=== PATIENT | male | born 1970 | race Two or more races ===

== ENCOUNTER 2025-04-22 15:24 | Inpatient (IN) | payer OTHER ==
[~2025-04-22] VITALS: Ht 152.4 cm; Wt 82.6 kg
[2025-04-22] MEDS: IV LR 1000 ML 1,000 ML BAG IV ONE (15:40)
[2025-04-22] MEDS: IV NS 0.9% 1,000 ML BAG IV ONE (15:40)
[2025-04-22 15:48] LABS: FRACTIONATED INSPIRED OXYGEN-V 21.0 %; SITE, VBG VBG - N/A; VBG BASE EXCESS -4.3 mmol/L (-2.0-3.0); VBG HCO3 22.6 mmol/L (22.0-29.0); VBG MetHb 0.2 % (0.5-1.5); VBG OXYGEN SATURATION 63.3 % (60.0-85.0); VBG PCO2 47.6 mmHg (38.0-54.0); VBG PH 7.294 (7.320-7.430); VBG PO2 35.7 mmHg (23.0-48.0); VBG TOTAL HEMOGLOBIN 17.9 G/dL (13.5-17.5)
[2025-04-22 15:55] LABS: PLATELET COUNT (AUTO) 222 K/uL (150-450); RED BLOOD CELL COUNT(AUTO) 5.22 MIL/uL (4.5-6.0); RED CELL DISTRIBUTION WIDTH 14.7 % (11.5-15.0); WHITE BLOOD COUNT (AUTO) 13.3 K/uL (4.3-11.0)
[2025-04-22 16:10] LABS: ASPARTATE AMINOTRANSFERASE 19.0 U/L (15-37); CALCIUM, SERUM 9.0 mg/dL (8.5-10.1); CREATININE 4.1 mg/dL (0.6-1.3); SODIUM SERUM 128.0 mmol/L (136-145); TOTAL PROTEIN, SERUM 7.9 g/dL (6.4-8.2); UREA NITROGEN, BLOOD 49.0 mg/dL (7-18)
[2025-04-22] MEDS ORDERED: INSULIN REGULAR, HUMAN 100 UNIT/ML 10 ML VIAL ONE ×2 (17:00→23:20)
[2025-04-22] MEDS: INSULIN REGULAR, HUMAN 100 UNIT/ML 10 ML VIAL SQ ONE (17:13)
[2025-04-22 17:16] LABS: APPEARANCE,URINE CLEAR (CLEAR); BLOOD, URINE 2+ Ery/uL (NEGATIVE); LEUKOCYTE ESTERASE ,URINE NEGATIVE (NEGATIVE); NITRITE, URINE NEGATIVE (NEGATIVE); UGLUCOSE 3+ mg/dL (NEGATIVE)
[2025-04-22] MEDS ORDERED: MAGNESIUM HYDROXIDE 30 ML UDC PO PRN (17:30)
[2025-04-22] MEDS ORDERED: ONDANSETRON HCL/PF 4 MG/2 ML VIAL IVP PRN (17:30)
[2025-04-22] MEDS ORDERED: INSULIN REGULAR, HUMAN 100 UNIT/ML 3 ML VIAL SQ PRN (17:30)
[2025-04-22] MEDS ORDERED: MAG HYDROX/AL HYDROX/SIMETH 30 ML UDC PO PRN (17:30)
[2025-04-22] MEDS ORDERED: ACETAMINOPHEN 325 MG TABLET PO PRN (17:30)
[2025-04-22] MEDS ORDERED: Z GUARD REMEDY 4 OZ OINT TP PRN (17:30)
[2025-04-22] MEDS ORDERED: DEXTROSE 50%-WATER 50 ML DISP.SYRIN IV PRN (17:30)
[2025-04-22 17:44] LABS: ADD URINE CULTURE NO
[2025-04-22] MEDS ORDERED: MELA10CA PO (17:44)
[2025-04-22] MEDS ORDERED: LOSA50TA39 PO (17:44)
[2025-04-22] MEDS ORDERED: ASPI-1420 PO (17:44)
[2025-04-22] MEDS ORDERED: NIFE30TA91 PO (17:44)
[2025-04-22] MEDS ORDERED: OMEG1CAP55 PO (17:44)
[2025-04-22] MEDS ORDERED: DIPH25TA62 PO (17:44)
[2025-04-22] MEDS ORDERED: CHOL500052 PO (17:44)
[2025-04-22] MEDS ORDERED: SIMV10TA98 PO (17:44)
[2025-04-22 17:45] LABS: SQUAMOUS EPITHELIAL CELL,UR 0-2 /HPF (None Seen)
[2025-04-22] MEDS: INSULIN REGULAR, HUMAN 100 UNIT in IV NS 0.9% 99 ML IV PRN ×2 (18:15→23:18)
[2025-04-22 20:00] VITALS: BP 119/93; TEMP 98.5; O2SAT 96
[2025-04-22] MEDS: IV NS 0.9% 1,000 ML IV PRN (20:04)
[2025-04-22 20:37] LABS: CALCIUM, SERUM 9.0 mg/dL (8.5-10.1); CREATININE 3.7 mg/dL (0.6-1.3); SODIUM SERUM 136.0 mmol/L (136-145); UREA NITROGEN, BLOOD 48.0 mg/dL (7-18)
[2025-04-22] MEDS ORDERED: BLOOD SUGAR DIAGNOSTIC 1 EACH STRIP IN SCH (21:00)
[2025-04-22] MEDS: BLOOD SUGAR DIAGNOSTIC 1 EACH STRIP IN SCH (21:17)
[2025-04-22 22:00] VITALS: BP 112/83; O2SAT 91
[2025-04-22] MEDS ORDERED: INSULIN GLARGINE, 100 UNIT/ML CARTRIDGE SQ SCH (22:00)
[2025-04-22] MEDS: HYDROCODONE/APAP 5/325MG TABLET PO PRN (22:58)
[2025-04-22 23:00] VITALS: BP 120/65; O2SAT 94
[2025-04-22 23:15] VITALS: O2SAT 96
[2025-04-23] VITALS (27 sets, daily range): BP systolic 95–130; BP diastolic 63–98; TEMP 98–98.6; O2SAT 88–96
[2025-04-23 00:09] LABS: CALCIUM, SERUM 9.8 mg/dL (8.5-10.1); CREATININE 3.3 mg/dL (0.6-1.3); SODIUM SERUM 146 mmol/L (136-145); UREA NITROGEN, BLOOD 49 mg/dL (7-18)
[2025-04-23] MEDS: IV D5W 1,000 ML IV PRN (03:25)
[2025-04-23 04:55] LABS: PLATELET COUNT (AUTO) 209 K/uL (150-450); RED BLOOD CELL COUNT(AUTO) 5.34 MIL/uL (4.5-6.0); RED CELL DISTRIBUTION WIDTH 14.1 % (11.5-15.0); WHITE BLOOD COUNT (AUTO) 14.2 K/uL (4.3-11.0)
[2025-04-23 05:09] LABS: CALCIUM, SERUM 9.8 mg/dL (8.5-10.1); CREATININE 3.3 mg/dL (0.6-1.3); PHOSPHORUS 2.8 mg/dL (2.5-4.9); SODIUM SERUM 150.0 mmol/L (136-145); UREA NITROGEN, BLOOD 52.0 mg/dL (7-18)
[2025-04-23 05:25] LABS: LDL 64.0 mg/dL (0-99)
[2025-04-23] MEDS: PANTOPRAZOLE 40 MG TABLET.DR PO SCH (07:53)
[2025-04-23] MEDS ORDERED: IV NS 0.9% 1,000 ML BAG IV PRN (08:30)
[2025-04-23 08:53] LABS: CALCIUM, SERUM 9.5 mg/dL (8.5-10.1); CREATININE 3.7 mg/dL (0.6-1.3); SODIUM SERUM 148.0 mmol/L (136-145); UREA NITROGEN, BLOOD 53.0 mg/dL (7-18)
[2025-04-23 12:54] LABS: CALCIUM, SERUM 9.3 mg/dL (8.5-10.1); CREATININE 3.4 mg/dL (0.6-1.3); SODIUM SERUM 149.0 mmol/L (136-145); UREA NITROGEN, BLOOD 51.0 mg/dL (7-18)
[2025-04-23 16:32] LABS: CALCIUM, SERUM 8.8 mg/dL (8.5-10.1); CREATININE 3.6 mg/dL (0.6-1.3); SODIUM SERUM 150.0 mmol/L (136-145); UREA NITROGEN, BLOOD 54.0 mg/dL (7-18)
[2025-04-23] MEDS ORDERED: DEXTROSE 50%-WATER 50 ML DISP.SYRIN IV PRN (18:00)
[2025-04-23] MEDS: BLOOD SUGAR DIAGNOSTIC 1 EACH STRIP VI SCH (21:21)
[2025-04-23] MEDS: *INSULIN REGULAR(HUMULIN R)HUM 100 UNIT/ML VIAL SQ PRN (21:23)
[2025-04-24] VITALS (8 sets, daily range): BP systolic 118–164; BP diastolic 80–97; TEMP 98–98.3; O2SAT 93–100
[2025-04-24] MEDS: ZOLPIDEM TARTRATE 5 MG TABLET PO PRN (00:21)
[2025-04-24] MEDS: INSULIN REGULAR, HUMAN 100 UNIT/ML 3 ML VIAL SQ PRN (06:32)
[2025-04-24] MEDS: IV 1/2NS 1000 ML 1,000 ML IV SCH (10:09)
[2025-04-24] MEDS ORDERED: INSULIN GLARGINE, 100 UNIT/ML CARTRIDGE SQ SCH (10:30)
[2025-04-24 11:17] LABS: PLATELET COUNT (AUTO) 143 K/uL (150-450); RED BLOOD CELL COUNT(AUTO) 4.88 MIL/uL (4.5-6.0); RED CELL DISTRIBUTION WIDTH 14.2 % (11.5-15.0); WHITE BLOOD COUNT (AUTO) 9.8 K/uL (4.3-11.0)
[2025-04-24 11:31] LABS: CALCIUM, SERUM 8.5 mg/dL (8.5-10.1); CREATININE 3.0 mg/dL (0.6-1.3); SODIUM SERUM 142.0 mmol/L (136-145); UREA NITROGEN, BLOOD 45.0 mg/dL (7-18)
[2025-04-24] MEDS: INSULIN GLARGINE, 100 UNIT/ML CARTRIDGE SQ SCH (21:54)
[2025-04-25 07:49] LABS: PLATELET COUNT (AUTO) 144 K/uL (150-450); RED BLOOD CELL COUNT(AUTO) 4.60 MIL/uL (4.5-6.0); RED CELL DISTRIBUTION WIDTH 13.8 % (11.5-15.0); WHITE BLOOD COUNT (AUTO) 7.6 K/uL (4.3-11.0)
[2025-04-25 07:50] LABS: ASPARTATE AMINOTRANSFERASE 26.0 U/L (15-37); CALCIUM, SERUM 8.1 mg/dL (8.5-10.1); CREATININE 2.2 mg/dL (0.6-1.3); PHOSPHORUS 3.8 mg/dL (2.5-4.9); SODIUM SERUM 137.0 mmol/L (136-145); TOTAL PROTEIN, SERUM 6.1 g/dL (6.4-8.2); UREA NITROGEN, BLOOD 30.0 mg/dL (7-18)
[2025-04-25 08:00] VITALS: BP 126/94; TEMP 98.2; O2SAT 98
[2025-04-25] MEDS ORDERED: INSU100V7 SQ (08:36)
[2025-04-25] MEDS ORDERED: LINA5TAB PO (08:36)
[2025-04-25] MEDS ORDERED: IV 1/2NS 1000 ML 1,000 ML IV PRN (12:09)
[2025-04-25 13:29] LABS: CALCIUM, SERUM 8.1 mg/dL (8.5-10.1); CREATININE 2.3 mg/dL (0.6-1.3); SODIUM SERUM 135.0 mmol/L (136-145); UREA NITROGEN, BLOOD 30.0 mg/dL (7-18)
== END 2025-04-25 17:59 | disposition home or self-care (01) | DRG 420 ==
LOC: ER 15:24 → ICU 19:16 → TELE 04-24 03:36 → MED 04-24 04:16
PROVIDERS: ADMIT Nurse Practitioner Acute Care; ATTEND Internal Medicine
DX: E11.10 Type 2 diabetes mellitus with ketoacidosis without coma (principal); N17.0 Acute kidney failure with tubular necrosis; E87.0 Hyperosmolality and hypernatremia; E86.0 Dehydration; I12.9 Hypertensive chronic kidney disease with stage 1 through stage 4 chronic kidney disease, or unspecified chronic kidney disease; N18.9 Chronic kidney disease, unspecified; E11.22 Type 2 diabetes mellitus with diabetic chronic kidney disease; D72.829 Elevated white blood cell count, unspecified; E66.01 Morbid (severe) obesity due to excess calories; E86.1 Hypovolemia; E87.5 Hyperkalemia; Z83.3 Family history of diabetes mellitus; E83.89 Other disorders of mineral metabolism; E66.9 Obesity, unspecified; Z71.3 Dietary counseling and surveillance; Z68.35 Body mass index [BMI] 35.0-35.9, adult
CPT/HCPCS: 36415; 71045-TC; 76770-TC; 76856-TC; 80048-TC; 80053-TC; 80061-TC; 80076-TC; 81001; 82010-TC; 82803-TC; 82962-TC; 83690-TC; 83735-TC; 84100-TC; 84443-TC; 85025-TC; 87081-TC; 93307-TC; A4223; G0378; J1815; J3490; J7030; J7120